=== PATIENT | male | born 1955 ===

== ENCOUNTER 2021-01-07 06:00 | Day surgery (SDC) | payer OTHER ==
[~2021-01-07 06:00] MED LIST: AMBIEN10 MG PO; COZAAR50 MG PO; GABAPENT PO
[2021-01-07] MEDS ORDERED: PERCOCET 5-3251 EACH PO (12:40)
== END 2021-01-07 17:20 | disposition home or self-care (01) ==
LOC: CIR.AMB 06:00
PROVIDERS: ATTEND Surgery
DX: D12.8 Benign neoplasm of rectum (principal); K62.82 Dysplasia of anus